=== PATIENT | male | born 1995 | race Caucasian/White ===

== ENCOUNTER 2016-07-27 10:42 | Emergency (ER) | payer OTHER ==
[~2016-07-27] VITALS: Ht 185.4 cm; Wt 97.0 kg
[~2016-07-27 10:42] MED LIST: KEFLEX500 MG PO
[2016-07-27] MEDS ORDERED: MOTRIN800 MG PO (13:32)
[2016-07-27 13:49] VITALS: BP 130/60
== END 2016-07-27 13:50 | disposition home or self-care (01) ==
LOC: EME 10:42 → EXP 10:42
DX: S67.190A Crushing injury of right index finger, initial encounter (principal); S60.410A Abrasion of right index finger, initial encounter; R20.0 Anesthesia of skin; W31.82XA Contact with other commercial machinery, initial encounter; Y92.69 Other specified industrial and construction area as the place of occurrence of the external cause; Y99.0 Civilian activity done for income or pay
CPT/HCPCS: 73140; 99281; 99284